=== PATIENT | female | born 1935 | race Caucasian/White ===

== ENCOUNTER 2019-03-21 15:29 | Emergency (ER) | payer BC, MEDICARE, OTHER ==
[~2019-03-21] VITALS: Ht 160 cm; Wt 87.3 kg
[~2019-03-21 15:29] MED LIST: ASPI-1009 PO; BUPR150T8 PO; GLIM1TAB3 PO; HYDR12.522 PO; IRBE150T51 PO; METF500T20 PO; MULT-968 PO; NAP220T PO; OMEG-61 PO; SIMV10TA2 PO; SITA50TA7 PO
[2019-03-21 16:50] LABS: BASOPHILS # (AUTO) 0.1 X10'3 (0-0.2); BASOPHILS % (AUTO) 0.8 % (0-1); EOSINOPHILS # (AUTO) 0.7 X10'3 (0-0.9); EOSINOPHILS % (AUTO) 6.4 % (0-6); HEMATOCRIT 43.6 % (35.0-45.0); HEMOGLOBIN 14.7 g/dl (12.0-16.0); LYMPHOCYTES # (AUTO) 1.5 X10'3 (1.1-4.8); LYMPHOCYTES % (AUTO) 14.2 % (21-51); MEAN CORPUSCULAR HEMOGLOBIN 31.9 PG (27.0-31.0); MEAN CORPUSCULAR HGB CONC 33.7 g/dL (33.0-36.5); MEAN CORPUSCULAR VOLUME 94.6 FL (78-98); MONOCYTES # (AUTO) 1.2 X10'3 (0-0.9); MONOCYTES % (AUTO) 10.8 % (2-12); NEUTROPHILS # (AUTO) 7.4 X10'3 (1.8-7.7); NEUTROPHILS % (AUTO) 67.8 % (42-75); PLATELET COUNT 337 X10'3 (140-440); RED BLOOD COUNT 4.61 X10'6 (4.20-5.60); RED CELL DISTRIBUTION WIDTH 12.9 % (11.5-14.5); WHITE BLOOD COUNT 10.9 X10'3 (4.5-11.0)
[2019-03-21 17:09] LABS: ALANINE AMINOTRANSFERASE 28 U/L (12-78); ALBUMIN 3.2 G/DL (3.4-5.0); ALBUMIN/GLOBULIN RATIO 0.8 (1.1-1.5); ALKALINE PHOSPHATASE 70 IU/L (46-116); ANION GAP 11 (8-16); ASPARTATE AMINO TRANSFERASE 25 U/L (10-37); BILIRUBIN,TOTAL 0.4 MG/DL (0.1-1.0); BLOOD UREA NITROGEN 15 MG/DL (7-18); CALCIUM 9.4 MG/DL (8.5-10.1); CHLORIDE 102 MMOL/L (99-107); CREATININE 1.25 MG/DL (0.40-0.90); GLUCOSE 100 MG/DL (70-104); SODIUM 140 MMOL/L (135-145); TOTAL CARBON DIOXIDE 27.1 MMOL/L (24-32); TOTAL PROTEIN 7.1 G/DL (6.4-8.2); eGFR 41 ML/MIN
[2019-03-21 17:10] LABS: PARTIAL THROMBOPLASTIN TIME 30 SECONDS (22-32)
--- NOTE | 2019-03-21 17:52 | NUR ---
pt quietly resting in bed, no pain, no sob at rest
[2019-03-21] MEDS ORDERED: ipratropium/albuterol 3ml nebule NEB ONE (19:40)
--- NOTE | 2019-03-21 19:41 | NUR ---
pt states, feeling much better, requesting water.
[2019-03-21] MEDS ORDERED: dexamethasone 4mg tablet PO ONE (19:45)
[2019-03-21] MEDS ORDERED: albuterol 2.5 MG/3 ML nebule NEB ONE (22:05)
[2019-03-21] MEDS ORDERED: ALBU6.7H9 INH (22:08)
[2019-03-21] MEDS ORDERED: PRED20TA PO (22:08)
--- NOTE | 2019-03-21 22:14 | NUR ---
PT STATES, I FELT MUCH BETTER AFTER THE RT TX.
[2019-03-21 22:49] VITALS: BP 135/65
== END 2019-03-21 22:58 | disposition home or self-care (01) ==
LOC: ER 15:29
DX: J40 Bronchitis, not specified as acute or chronic (principal); E78.00 Pure hypercholesterolemia, unspecified; I10 Essential (primary) hypertension; E11.9 Type 2 diabetes mellitus without complications; Z90.710 Acquired absence of both cervix and uterus; Z98.890 Other specified postprocedural states; Z79.82 Long term (current) use of aspirin; Z79.899 Other long term (current) drug therapy
CPT/HCPCS: 36415; 71045; 80053; 83880; 84484; 85025; 85610; 85730; 93005; 94640; 94760; 99284; J8540

== ENCOUNTER 2019-03-25 21:04 | Emergency (ER) | payer MEDICARE, OTHER ==
[~2019-03-25] VITALS: Ht 160 cm; Wt 86.0 kg
[~2019-03-25 21:04] MED LIST changes: +ALBU6.7H9 INH; +PRED20TA PO
[2019-03-25] MEDS ORDERED: normal saline 1000ML IV soln IV ONE (21:10)
--- NOTE | 2019-03-25 21:19 | NUR ---
ambulated to xray and now in BR for ua
[2019-03-25 21:23] LABS: BASOPHILS # (AUTO) 0.1 X10'3 (0-0.2); BASOPHILS % (AUTO) 0.6 % (0-1); EOSINOPHILS # (AUTO) 0.6 X10'3 (0-0.9); EOSINOPHILS % (AUTO) 5.5 % (0-6); HEMATOCRIT 44.3 % (35.0-45.0); HEMOGLOBIN 14.9 g/dl (12.0-16.0); LYMPHOCYTES % (AUTO) 18.4 % (21-51); MEAN CORPUSCULAR HEMOGLOBIN 31.9 PG (27.0-31.0); MEAN CORPUSCULAR HGB CONC 33.7 g/dL (33.0-36.5); MEAN CORPUSCULAR VOLUME 94.6 FL (78-98); MEAN PLATELET VOLUME 8.2 FL (7.4-10.4); MONOCYTES % (AUTO) 9.3 % (2-12); NEUTROPHILS # (AUTO) 7.1 X10'3 (1.8-7.7); NEUTROPHILS % (AUTO) 66.2 % (42-75); PLATELET COUNT 341 X10'3 (140-440); RED BLOOD COUNT 4.68 X10'6 (4.20-5.60); RED CELL DISTRIBUTION WIDTH 13.4 % (11.5-14.5); WHITE BLOOD COUNT 10.7 X10'3 (4.5-11.0)
[2019-03-25 21:36] LABS: PARTIAL THROMBOPLASTIN TIME 29 SECONDS (22-32)
[2019-03-25 21:37] LABS: ALANINE AMINOTRANSFERASE 33 U/L (12-78); ALBUMIN 3.2 G/DL (3.4-5.0); ALBUMIN/GLOBULIN RATIO 0.9 (1.1-1.5); ALKALINE PHOSPHATASE 58 IU/L (46-116); ANION GAP 14 (8-16); ASPARTATE AMINO TRANSFERASE 24 U/L (10-37); BILIRUBIN,TOTAL 0.4 MG/DL (0.1-1.0); BLOOD UREA NITROGEN 36 MG/DL (7-18); BUN/CREATININE RATIO 29.8 (6.6-38.0); CALCIUM 9.4 MG/DL (8.5-10.1); CHLORIDE 103 MMOL/L (99-107); CREATININE 1.21 MG/DL (0.40-0.90); GLUCOSE 138 MG/DL (70-104); MAGNESIUM 1.3 MG/DL (1.5-2.4); POTASSIUM 4.2 MMOL/L (3.5-5.1); SODIUM 139 MMOL/L (135-145); TOTAL CARBON DIOXIDE 22.1 MMOL/L (24-32); TOTAL PROTEIN 6.6 G/DL (6.4-8.2); eGFR 42 ML/MIN
[2019-03-25] MEDS ORDERED: morphine 2 MG/ML inj. syringe IV ONE (21:40)
[2019-03-25 21:45] LABS: CLARITY,URINE CLEAR (Clear); COLOR,URINE YELLOW (Yellow); GLUCOSE, URINE NEGATIVE (Neg); KETONES,URINE NEGATIVE (Neg); LEUKOCYTE ESTERASE ,URINE NEGATIVE (Neg); NITRITES, URINE NEGATIVE (Neg); OCCULT BLOOD,URINE TRACE-LYSED (Neg); PH,URINE 5.5 (4.8-8.0); PROTEIN,URINE NEGATIVE (Neg); UA COLLECTION TYPE CLN CATCH MIDSTREAM; UROBILINOGEN,URINE 0.2 E.U/dL (0.2-1.0)
[2019-03-25 21:47] LABS: BACTERIA,URINE NONE SEEN /HPF (Neg); MUCUS STRANDS NONE SEEN /LPF (Neg); RBC,URINE 0-2 /HPF (0-2); SQUAMOUS EPITHELIAL CELL,UR FEW /LPF (FEW); WBC,URINE NONE SEEN /HPF (0-4)
[2019-03-25] MEDS ORDERED: magnesium 2GM in 50ml NS 50 ML IV ONE (22:35)
[2019-03-25 22:53] LABS: D-DIMER 0.85 MG/L FEU (0-0.50)
[2019-03-25 22:55] VITALS: BP 132/74
[2019-03-25 22:59] LABS: TROPONIN I < 0.04 NG/ML (0.0-0.05)
== END 2019-03-26 00:26 | disposition home or self-care (01) ==
LOC: ER 21:04
DX: E86.0 Dehydration (principal); R53.1 Weakness; R55 Syncope and collapse; R06.02 Shortness of breath; K59.00 Constipation, unspecified; M79.604 Pain in right leg; E78.00 Pure hypercholesterolemia, unspecified; I10 Essential (primary) hypertension; E11.9 Type 2 diabetes mellitus without complications; Z79.82 Long term (current) use of aspirin; Z79.899 Other long term (current) drug therapy; Z87.19 Personal history of other diseases of the digestive system; Z87.09 Personal history of other diseases of the respiratory system; Z90.710 Acquired absence of both cervix and uterus; Z98.890 Other specified postprocedural states; Z87.891 Personal history of nicotine dependence
CPT/HCPCS: 36415; 71045; 80053; 81001; 83605; 83735; 83880; 84145; 84484; 85025; 85379; 85610; 85730; 93005; 96361; 96365; 99284; J3475; J7030

== ENCOUNTER 2019-06-14 07:45 | Day surgery (SDC) | payer MEDICARE ==
[2019-06-12 14:58] LABS: BASOPHILS % (AUTO) 0.6 % (0-1); EOSINOPHILS # (AUTO) 0.2 X10'3 (0-0.9); EOSINOPHILS % (AUTO) 2.7 % (0-6); LYMPHOCYTES # (AUTO) 2.5 X10'3 (1.1-4.8); LYMPHOCYTES % (AUTO) 35.7 % (21-51); MEAN CORPUSCULAR HEMOGLOBIN 32.2 PG (27.0-31.0); MEAN CORPUSCULAR HGB CONC 34.5 g/dL (33.0-36.5); MEAN CORPUSCULAR VOLUME 93.3 FL (78-98); MEAN PLATELET VOLUME 9.3 FL (7.4-10.4); MONOCYTES # (AUTO) 0.6 X10'3 (0-0.9); MONOCYTES % (AUTO) 7.9 % (2-12); NEUTROPHILS # (AUTO) 3.7 X10'3 (1.8-7.7); NEUTROPHILS % (AUTO) 53.1 % (42-75); PRE OP HEMATOCRIT 44.1 % (35.0-45.0); PRE OP HEMOGLOBIN 15.2 g/dL (12.0-16.0); PRE OP PLATELET COUNT 220 X10'3 (140-440); RED BLOOD COUNT 4.73 X10'6 (4.20-5.60); RED CELL DISTRIBUTION WIDTH 15.1 % (11.5-14.5)
[2019-06-12 15:13] LABS: ALBUMIN 3.6 G/DL (3.4-5.0); ALBUMIN/GLOBULIN RATIO 1.2 (1.1-1.5); ALKALINE PHOSPHATASE 77 IU/L (46-116); BLOOD UREA NITROGEN 20 MG/DL (7-18); BUN/CREATININE RATIO 22.2 (6.6-38.0); CALCIUM 8.9 MG/DL (8.5-10.1); CHLORIDE 102 MMOL/L (99-107); PRE OP ALT 19 U/L (30-65); PRE OP ANION GAP 12 (8-16); PRE OP AST 17 U/L (10-37); PRE OP BILIRUB, TOTAL 0.3 MG/DL (0.0-1.0); PRE OP GLUCOSE 116 MG/DL (70-104); PRE OP POTASSIUM 3.9 MMOL/L (3.4-5.1); PRE OP SODIUM 141 MMOL/L (135-145); TOTAL CARBON DIOXIDE 26.8 MMOL/L (24-32); TOTAL PROTEIN 6.7 G/DL (6.4-8.2); eGFR 60 ML/MIN
[2019-06-14] VITALS (7 sets, daily range): BP systolic 125–149; BP diastolic 74–96
[~2019-06-14] VITALS: Ht 160 cm; Wt 89.0 kg
[~2019-06-14 07:45] MED LIST changes: -ALBU6.7H9 INH; +ALBU8.5H8 INH; +DOCU-151 PO; -NAP220T PO; -PRED20TA PO; +albuterol 2.5 MG/3 ML nebule NEB ONE; +cefazolin/dext.iso 2gm/100ml 100 ML IV ONE; +famotidine 20mg tablet PO ONE; +ringers solution, lacted 1,000 ML IV SCH
[2019-06-14] MEDS ORDERED: LIDOcaine 1% 30ml preserv. free vial ONE (08:08)
[2019-06-14] MEDS ORDERED: ringers solution, lacted 1,000 ML IV SCH (08:48)
[2019-06-14] MEDS ORDERED: ondansetron/PF 4mg/2ml inj IV PRN (08:50)
[2019-06-14] MEDS ORDERED: morphine 4 MG/ML inj SYRINge IV PRN ×2 (08:50)
[2019-06-14] MEDS ORDERED: proCHLORperazine 10 MG/2 ml inj IV PRN (08:50)
[2019-06-14] MEDS ORDERED: meperidine/PF 25mg/ml syringe IV PRN ×3 (08:50)
[2019-06-14] MEDS ORDERED: BUPIVAcaine/PF 2.5mg/ml (0.25%) 10ml vial ONE (10:15)
[2019-06-14] MEDS ORDERED: ketorolac trometh. 30mg/ml inj. ONE (10:34)
[2019-06-14] MEDS ORDERED: fentaNYL/PF 50MCG/1 ML 2ML syringe ONE (10:34)
[2019-06-14] MEDS ORDERED: midazolam 2 mg/2 ml injection ONE (10:34)
--- NOTE | 2019-06-14 11:14 | NUR ---
Received from OR via [facility] , accompanied by Anesthesiologist DEMARCO and report given by Anesthesiolgist. PATIENT WITH DRESSINGS TO FINGERS ON LEFT HAND AND ARE CDI. DENIES PAIN. VSS. ON ROOM AIR WITH 95% SATURATIONS. 20G PIV IN RIGHT UE RUNNING LR AT 100. Addendum: 06/14/19 at 1125 by Douglas Gillespie RN, RN Amended: Links added.
--- NOTE | 2019-06-14 12:04 | NUR ---
ALL DC CRITERIA HAS BEEN MET. IV TAKEN OUT WITHOUT COMPLICATIONS. ALL INSTRUCTIONS COVERED AND ALL QUESTIONS ANSWERED. DRESSINGS CDI. OUT VIA WHEELCHAIR TO PERSONAL VEHICLE WHERE PATIENT WAS SECURED IN AND DRIVEN HOME BY FAMILY. Addendum: 06/14/19 at 1217 by Douglas Gillespie RN, RN Amended: Links added.
== END 2019-06-14 12:04 | disposition home or self-care (01) ==
LOC: PAS 07:45
PROVIDERS: ATTEND Orthopaedic Surgery Hand Surgery
DX: M67.442 Ganglion, left hand (principal); J45.909 Unspecified asthma, uncomplicated; F32.9 Major depressive disorder, single episode, unspecified; G62.9 Polyneuropathy, unspecified; E11.40 Type 2 diabetes mellitus with diabetic neuropathy, unspecified; E66.9 Obesity, unspecified; Z68.33 Body mass index [BMI] 33.0-33.9, adult; Z79.899 Other long term (current) drug therapy; Z86.19 Personal history of other infectious and parasitic diseases; Z79.84 Long term (current) use of oral hypoglycemic drugs; Z85.41 Personal history of malignant neoplasm of cervix uteri; Z85.51 Personal history of malignant neoplasm of bladder; Z79.82 Long term (current) use of aspirin; Z87.891 Personal history of nicotine dependence; Z90.710 Acquired absence of both cervix and uterus
CPT/HCPCS: 26160; 36415; 80053; 82948; 85025; 93005; J1885; J2001; J2250; J3010; J3490; A4215; A4618; J7120

== ENCOUNTER 2019-06-20 11:07 | Emergency (ER) | payer MEDICARE ==
[~2019-06-20] VITALS: Ht 160 cm; Wt 87.3 kg
[~2019-06-20 11:07] MED LIST changes: -albuterol 2.5 MG/3 ML nebule NEB ONE; -cefazolin/dext.iso 2gm/100ml 100 ML IV ONE; -famotidine 20mg tablet PO ONE; -ringers solution, lacted 1,000 ML IV SCH
[2019-06-20 11:15] VITALS: BP 140/75
[2019-06-20] MEDS ORDERED: CEPH-572 PO (12:26)
== END 2019-06-20 12:33 | disposition home or self-care (01) ==
LOC: ER 11:07
DX: L03.012 Cellulitis of left finger (principal); E78.00 Pure hypercholesterolemia, unspecified; I10 Essential (primary) hypertension; E11.9 Type 2 diabetes mellitus without complications; Z90.710 Acquired absence of both cervix and uterus; Z98.890 Other specified postprocedural states; Z79.82 Long term (current) use of aspirin; Z79.84 Long term (current) use of oral hypoglycemic drugs; Z79.899 Other long term (current) drug therapy
CPT/HCPCS: 99284

== ENCOUNTER 2021-02-16 21:54 | Emergency (ER) | payer MEDICARE ==
[~2021-02-16] VITALS: Ht 160 cm; Wt 76.0 kg
[~2021-02-16 21:54] MED LIST changes: +AMA1T PO; -GLIM1TAB3 PO; +METF-900 PO; -METF500T20 PO
[2021-02-16 22:54] LABS: ALANINE AMINOTRANSFERASE 19 U/L (12-78); ALBUMIN 3.3 G/DL (3.4-5.0); ALBUMIN/GLOBULIN RATIO 0.9 (1.1-1.5); ALKALINE PHOSPHATASE 102 IU/L (46-116); ANION GAP 12 (8-16); ASPARTATE AMINO TRANSFERASE 14 U/L (10-37); BILIRUBIN,TOTAL 0.3 MG/DL (0.1-1.0); BLOOD UREA NITROGEN 31 MG/DL (7-18); BUN/CREATININE RATIO 21.4 (6.6-38.0); CHLORIDE 103 MMOL/L (99-107); CREATININE 1.45 MG/DL (0.40-0.90); GLUCOSE 211 MG/DL (70-104); POTASSIUM 3.9 MMOL/L (3.5-5.1); SODIUM 139 MMOL/L (135-145); TOTAL CARBON DIOXIDE 23.8 MMOL/L (24-32); eGFR 34 ML/MIN
[2021-02-16 22:55] LABS: BASOPHILS % (AUTO) 0.4 % (0-1); EOSINOPHILS # (AUTO) 0.5 X10'3 (0-0.9); EOSINOPHILS % (AUTO) 5.9 % (0-6); HEMATOCRIT 41.6 % (35.0-45.0); HEMOGLOBIN 14.4 g/dl (12.0-16.0); LYMPHOCYTES # (AUTO) 2.5 X10'3 (1.1-4.8); MEAN CORPUSCULAR HGB CONC 34.7 g/dL (33.0-36.5); MEAN CORPUSCULAR VOLUME 95.1 FL (78-98); MEAN PLATELET VOLUME 8.9 FL (7.4-10.4); MONOCYTES % (AUTO) 12.6 % (2-12); NEUTROPHILS # (AUTO) 4.2 X10'3 (1.8-7.7); NEUTROPHILS % (AUTO) 51.1 % (42-75); PLATELET COUNT 258 X10'3 (140-440); RED BLOOD COUNT 4.37 X10'6 (4.20-5.60); RED CELL DISTRIBUTION WIDTH 13.1 % (11.5-14.5); WHITE BLOOD COUNT 8.2 X10'3 (4.5-11.0)
[2021-02-16 23:00] LABS: CALCIUM 8.7 MG/DL (8.5-10.1)
[2021-02-17] MEDS ORDERED: AZIT250T2 PO (01:49)
[2021-02-17] MEDS ORDERED: dexamethasone 4mg tablet PO ONE (01:50)
[2021-02-17] MEDS ORDERED: azithromycin 250mg tablet PO ONE (01:50)
[2021-02-17 02:00] VITALS: BP 129/71
== END 2021-02-17 02:02 | disposition home or self-care (01) ==
LOC: ER 21:55
DX: J40 Bronchitis, not specified as acute or chronic (principal); R94.31 Abnormal electrocardiogram [ECG] [EKG]; E78.00 Pure hypercholesterolemia, unspecified; I10 Essential (primary) hypertension; E11.9 Type 2 diabetes mellitus without complications; Z79.82 Long term (current) use of aspirin; Z79.84 Long term (current) use of oral hypoglycemic drugs; Z79.899 Other long term (current) drug therapy; Z85.9 Personal history of malignant neoplasm, unspecified
CPT/HCPCS: 36415; 71046; 80053; 85025; 93005; 99285

== ENCOUNTER 2021-03-25 12:07 | Emergency (ER) | payer MEDICARE ==
[~2021-03-25] VITALS: Ht 162.6 cm; Wt 89.0 kg
[~2021-03-25 12:07] MED LIST changes: +ALBU8.5H17 INH; -ALBU8.5H8 INH
[2021-03-25] MEDS ORDERED: normal saline 1000ml 1,000 ML IV ONE (12:35)
[2021-03-25 13:20] LABS: BASOPHILS % (AUTO) 0.1 % (0-1); EOSINOPHILS % (AUTO) 0.1 % (0-6); HEMATOCRIT 43.2 % (35.0-45.0); HEMOGLOBIN 14.4 g/dl (12.0-16.0); LYMPHOCYTES % (AUTO) 7.4 % (21-51); MEAN CORPUSCULAR HGB CONC 33.3 g/dL (33.0-36.5); MEAN CORPUSCULAR VOLUME 95.9 FL (78-98); MONOCYTES # (AUTO) 1.1 X10'3 (0-0.9); MONOCYTES % (AUTO) 8.5 % (2-12); NEUTROPHILS # (AUTO) 10.9 X10'3 (1.8-7.7); NEUTROPHILS % (AUTO) 83.9 % (42-75); PLATELET COUNT 200 X10'3 (140-440); RED CELL DISTRIBUTION WIDTH 13.6 % (11.5-14.5)
[2021-03-25 13:29] LABS: ALBUMIN 3.3 G/DL (3.4-5.0); ANION GAP 11 (8-16); BLOOD UREA NITROGEN 21 MG/DL (7-18); CALCIUM 8.5 MG/DL (8.5-10.1); CHLORIDE 103 MMOL/L (99-107); GLUCOSE 309 MG/DL (70-104); POTASSIUM 3.8 MMOL/L (3.5-5.1); SODIUM 139 MMOL/L (135-145); TOTAL CARBON DIOXIDE 25.3 MMOL/L (24-32); eGFR 53 ML/MIN
[2021-03-25] MEDS ORDERED: AZIT-63 PO ×2 (13:55)
[2021-03-25 15:41] VITALS: BP 132/67
[2021-03-27] MEDS ORDERED: SIMV10TA98 PO (13:45)
[2021-03-27] MEDS ORDERED: GLIM2TAB6 PO (13:45)
[2021-03-27] MEDS ORDERED: SITA100T11 PO (13:45)
[2021-03-27] MEDS ORDERED: BUPR-353 PO (13:45)
[2021-03-27] MEDS ORDERED: IRBE150T24 PO (13:45)
[2021-03-27] MEDS ORDERED: METF-900 PO (13:45)
[2021-03-27] MEDS ORDERED: HYDR25TA4 PO (13:45)
[2021-03-30] MEDS ORDERED: METR-159 PO (11:28)
[2021-03-30] MEDS ORDERED: HYDR-3965 PO (11:28)
[2021-03-30] MEDS ORDERED: PANT40TA54 PO (11:28)
[2021-03-30] MEDS ORDERED: CEFD300C3 PO (11:28)
[2021-03-30] MEDS ORDERED: LACT1CAP26 PO (11:28)
== END 2021-03-25 15:42 | disposition home or self-care (01) ==
LOC: ER 12:07
DX: J42 Unspecified chronic bronchitis (principal); Z20.822 Contact with and (suspected) exposure to COVID-19; R06.02 Shortness of breath; R05 Cough; M54.5 Low back pain; E78.00 Pure hypercholesterolemia, unspecified; I10 Essential (primary) hypertension; E11.9 Type 2 diabetes mellitus without complications; Z87.01 Personal history of pneumonia (recurrent); Z85.9 Personal history of malignant neoplasm, unspecified; Z90.710 Acquired absence of both cervix and uterus; Z98.890 Other specified postprocedural states; Z79.82 Long term (current) use of aspirin; Z79.2 Long term (current) use of antibiotics; Z79.899 Other long term (current) drug therapy
CPT/HCPCS: 36415; 71045; 80048; 85025; 87635; 93005; 96360; 99285; C9803; J7030